=== PATIENT | female | born 1990 | race African-American/Black ===

== ENCOUNTER 2017-10-23 08:20 | Emergency (ER) | payer OTHER ==
[~2017-10-23] VITALS: Ht 162.6 cm; Wt 72.1 kg
[~2017-10-23 08:20] MED LIST: FERROUS SULFATE; KEFLEX500 MG PO; PRENATAL; TOBRAMYCIN SULFA5 ML OP
[2017-10-23 09:36] VITALS: BP 115/61
== END 2017-10-23 09:36 | disposition home or self-care (01) ==
LOC: ER 08:20
DX: M65.4 Radial styloid tenosynovitis [de Quervain] (principal)